=== PATIENT | male | born 1975 | race Hispanic/Latino ===

== ENCOUNTER 2018-06-27 22:10 | Emergency (ER) | payer OTHER ==
[2018-06-27 22:50] LABS: BASOPHILS % (AUTO) 1.4 % (0.0-5.0); HEMATOCRIT 44.9 % (42-54); LYMPHOCYTES % (AUTO) 35.9 % (21.0-51.0); MEAN CORPUSCULAR HEMOGLOBIN 32.1 pg (27.0-33.0); MEAN CORPUSCULAR HGB CONC 33.9 g/dL (32.0-36.0); MEAN CORPUSCULAR VOLUME 94.6 fL (79-99); MONOCYTES % (AUTO) 8.9 % (3.0-13.0); NEUTROPHILS % (AUTO) 51.8 % (40.0-77.0); PLATELET COUNT (AUTO) 268 K/uL (130-400); RED BLOOD CELL COUNT(AUTO) 4.75 MIL/uL (4.50-6.20); WHITE BLOOD COUNT (AUTO) 7.2 K/uL (4.8-10.8)
[2018-06-27 23:03] LABS: CREATININE 1.1 mg/dL (0.5-1.5); POTASSIUM 3.5 mmol/L (3.5-5.1)
[2018-06-27 23:07] LABS: ALBUMIN 3.1 g/dL (3.5-5.0); BILIRUBIN,TOTAL 0.2 mg/dL (0.2-1.0); TOTAL PROTEIN, SERUM 6.3 g/dL (6.0-8.3)
[2018-06-27 23:25] LABS: INR 1.04 (0.85-1.15); PARTIAL THROMBOPLASTIN TIME 28.6 SEC (26.3-35.5); PROTHROMBIN TIME 10.9 SEC (9.6-11.6)
[2018-06-27] MEDS ORDERED: ASPIRIN 325 MG TABLET ONE (23:48)
[2018-06-28] MEDS ORDERED: KETOROLAC TROMETHAMINE 30MG/ML ONE (02:43)
[2018-06-28] MEDS ORDERED: CYCLOBENZAPRINE HCL 10 MG TABLET ONE (02:44)
== END 2018-06-28 03:29 | disposition home or self-care (01) ==
LOC: EDH 22:10
DX: M62.830 Muscle spasm of back (principal); R07.89 Other chest pain; M54.6 Pain in thoracic spine; Z72.0 Tobacco use
CPT/HCPCS: 36415; 71045; 80053; 84484 ×2; 85025; 85610; 85730; 93005; 94761; 96374; 99284; J1885